=== PATIENT | female | born 1985 | race Caucasian/White ===

== ENCOUNTER 2023-04-16 05:49 | Inpatient (IN) ==
--- NOTE | 2023-04-14 09:04 | Anesthesiology Consultation ---
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 No known COVID-19 posit saurav contacts or current COVID-19 related symptoms. Travel screen negative. At surgeon discretion if preop Covid testing being done. Seen by Medicine 03/20/23= growth restrictionpatient to remain on baby aspirin. Discussed associated increased risk. The need for close surveillance. Discussed risk of preeclampsia. Patient declines genetic testing. Recommend ongoing growth scans. Repeat Dopplers weekly. If Dopplers remain normal plan for delivery at 38 to 39 weeks. If SD ratio is elevated above 95 percentile, delivery at 37 weeks. If absent or reversed end- diastolic flowproceed with delivery at this time. 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 Fetus is currently breechpatient aware that she will require primary if fetus remains breech. Known maternal absence of unilateral kidney, previous baseline testing of renal function was normal. History of vaginal septum that has been resected. Would be okay for vaginal delivery fetus is cephalic depending on obstetric situation. History Surgery Operation Date: 04/16/23 09:10 Proposed Procedures p Section (Delivery of the Baby Through Abdominal Incision) - Miley Tirado MD, FACOG Height/Weight Height: 5 ft 3 in Weight: 73.028 kg Allergies Allergy/AdvReac Type Severity Reaction Status Date / Time cephalexin [From Keflex] Allergy Intermediate rash and Verified 04/14/23 08:08 hives Medications Home Medications Medication Instructions Recorded Confirmed Last Taken vitamin#30 30 mg iron-10 1 cap PO QDL 02/26/22 04/14/23 06/28/22 mg iron-folic acid 1 mg-omg3 capsule Lactobacillus acidophilus 10 10,000 mmu cells PO DAILY 06/28/22 04/14/23 06/28/22 billion cell capsule (Probiotic) fluticasone propionate 50 2 spray intranasal DAILY PRN 06/28/22 04/14/23 Unknown mcg/actuation nasal Congestion spray,suspension aspirin 81 mg capsule 81 mg PO QDL 11/05/22 04/14/23 Unknown Past Medical History Medical History History of chicken pox as child Nausea and vomiting after administration of anesthetic agent after ACL repair but it was after pt got home 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
--- NOTE | 2023-04-15 13:53 | History & Physical Report ---
Date of Service April 15, 2023 Assessment & Plan (1) Supervision of elderly primigravida: (2) IUGR (intrauterine growth restriction) affecting care of mother: (3) Uterus didelphus in : Plan Patient to be admitted for planned c/s at 38wks due to above diagnoses. Aware of risks, alt and complications and consent signed. Labs am of procedure. Questions answered to patient's apparent satisfaction. History of Present Illness Chief Complaint: planned c/s Primary Care Provider: Ant Carvalho, 37yo at 38 wks pippa presents to L&D on day of admission for planned c/s due to breech presentation and IUGR. She is doing well. No rom, vb. +FM. No ctx. PNC c/b 1. uterine anomaly 2. iugr 3. ama 4. breech presentation PNL rh pos, ri, gbs neg OBH: sab x 1 GYNH: nl paps no stds Allergies Allergy/AdvReac Type Severity Reaction Status Date / Time cephalexin [From Keflex] Allergy Intermediate rash and Verified 04/15/23 10:04 hives Home Medications Medication Instructions Recorded Confirmed Type vitamin#30 30 mg iron-10 1 cap PO QDL 02/26/22 04/15/23 History mg iron-folic acid 1 mg-omg3 capsule Lactobacillus acidophilus 10 10,000 mmu cells PO DAILY 06/28/22 04/15/23 History billion cell capsule (Probiotic) fluticasone propionate 50 2 spray intranasal DAILY PRN 06/28/22 04/15/23 History mcg/actuation nasal Congestion spray,suspension aspirin 81 mg capsule 81 mg PO QDL 11/05/22 04/15/23 History Patient History Medical History History of chicken pox as child Nausea and vomiting after administration of anesthetic agent after ACL repair but it was after pt got home 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 Surgical History History of colposcopy with cervical biopsy benign History of vaginal surgery septoplasty 1996 S/P ACL repair right [place] teeth extracted Family History Mother Breast cancer Father Fibrosis, idiopathic pulmonary Denies family history of Ovarian cancer Colorectal cancer Social History Smoking Status: Never smoker Second Hand Exposure: No; Do You Dip or Chew Tobacco: No; Hx Alcohol Use: No Hx Substance Use: No Preferred Language: Malian Communication Ability: Effective Visual Impairment: Limited Hearing Ability: Normal 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 Beliefs That Will Affect Care: None marital status: marital status details: James Schmitz (40) [phone] Current Living Situation: Spouse Current Living Situation Comment: lives with spouse, dog current occupational status: employed current occupation: [employer] Feels Safe at Home: Yes Childhood Exposure to Second-Hand Smoke: No Diet: regular caffeine: Yes Dental Care, Regularly: Yes Physical Activity Frequency: 3-4 Times per Week Seatbelt Use: always Sunscreen Use: Yes Do you think of yourself as: straight/heterosexual Gender Identity: Female Assistive Devices: Contacts and Glasses Review of Systems as per Subjective / HPI Physical Exam Constitutional: WD/WN, vitals as above Respiratory: normal respiratory effort, lungs clear to auscultation Cardiovascular: Rate/Rhythm: regular rate and regular rhythm Gastrointestinal (Abdomen): Percussion/Palpation: abdomen soft; abdomen nontender (gravid, nst reactive) Neurologic: grossly normal Psychiatric: A+Ox3, euthymic affect Coding Level of Care Code None Diagnoses Supervision of elderly primigravida O09.519 IUGR (intrauterine growth restriction) affecting care of mother O36.5973 Uterus didelphus in O34.599; Q51.28
[2023-04-16] MEDS ORDERED: 300mg Preop IV SCH (06:00)
[2023-04-16] MEDS ORDERED: 600mg Preop IV SCH (06:00)
[2023-04-16] MEDS ORDERED: LACTATED RINGER'S 1,000 ML IV PRN (06:26)
[2023-04-16] MEDS ORDERED: fentaNYL citrate PF 100 MCG/2 ML VIAL ONE (06:44)
[2023-04-16] MEDS ORDERED: MoRPHine SULFATE PF 1 MG/ML 10 ML AMP/VIAL ONE (06:44)
[2023-04-16 06:52] LABS: Basophils # (auto) 0.07 K/uL (0-0.2); Basophils % (auto) 0.5 %; Eosinophils % (auto) 1.5 %; Hematocrit (blood only) 38.4 % (37.0-47.0); Hemoglobin 13.6 g/dl (12.0-16.0); Immature Granulocytes # (auto) 0.08 K/uL (0.01-0.20); Immature Granulocytes % (auto) 0.6 %; Lymphocytes # (auto) 2.72 K/uL (1.2-3.4); Lymphocytes % (auto) 20.7 %; Mean Corpuscular Hemoglobin 32.4 pg (25.0-34.0); Mean Corpuscular Hgb Conc 35.4 g/dL (32.0-36.0); Mean Corpuscular Volume 91.4 fL (80.0-100.0); Mean Platelet Volume 11.3 fL (9.4-12.4); Monocytes # (auto) 0.93 K/uL (0.11-0.59); Monocytes % (auto) 7.1 %; Neutrophils # (auto) 9.16 K/uL (1.40-6.50); Neutrophils % (auto) 69.6 %; Platelet Count 180 K/uL (130-400); RDW Coefficient of Variation 13.5 % (11.5-14.5); White Blood Count 13.16 K/ul (4.8-10.8)
[2023-04-16] MEDS ORDERED: CITRIC ACID/SODIUM CITRATE 15 ML UDC ONE (07:12)
[2023-04-16] MEDS ORDERED: GENTAMICIN CONSULT ACTIVE PRN (07:26)
--- NOTE | 2023-04-16 07:29 | History & Physical Bridge Note ---
Date of Service April 16, 2023 History & Physical Bridge Note I have examined the patient, reviewed the History & Physical and in the interval since the performance of the History & Physical I have noted the following changes of clinical significance: no changes noted
[2023-04-16] MEDS ORDERED: OXYTOCIN 10 UNITS/ML VIAL ONE (07:56)
[2023-04-16] MEDS ORDERED: GENTAMICIN SULFATE 380 MG in DEXTROSE 5% 100 ML IV ONE (08:00)
--- NOTE | 2023-04-16 08:53 | Post Operative Brief Note ---
PG Immediate Post Op with CF Date of Surgery April 16, 2023 Pre & Post Diagnosis Operation Date: 04/16/23 07:30 Pre-Op Diagnosis: 1. 38 week IUP 2. IUGR 3. Breech presentation 4. AMA 5. Uterine anomaly Post-Op Diagnosis: Same I identified the patient and participated in the time-out.: Yes Procedure Operation Date: 04/16/23 07:30 Actual Procedures p Primary Low Transverse Section - Miley Tirado MD, FACOG Surgeon Miley Tirado MD, FACOG Motion Picture Camera Lens Technician [place] Estimated Blood Loss 600 Findings Consistent with Post-Op Diagnosis (viable female, apgars pending. uterus with dominant right uterus, left uterus developed but smaller. no communication between cavities. normal ovaries bilaterally. ) Fluids 700cc Specimens Specimen Description: Placenta: Hold Cord Blood Obtained Drains Brasher Catheter Anesthesia Type Spinal Complications none Disposition Accompanied Patient To Recovery: No Disposition: L&D
[2023-04-16] MEDS ORDERED: MoRPHine SULFATE PF 1 MG/ML 10 ML AMP/VIAL INT SPINAL ONE (09:00)
[2023-04-16] MEDS ORDERED: ePHEDrine sulfate 50 MG/ML AMP IV PRN (09:00)
[2023-04-16] MEDS ORDERED: ONDANSETRON INJ 2 MG/ML 2 ML VIAL IV PRN (09:00)
[2023-04-16] MEDS ORDERED: LACTATED RINGER'S 500 ML IV PRN (09:00)
[2023-04-16] MEDS ORDERED: NALBUPHINE HCL INJ 10 MG/ML AMP IV PRN (09:00)
[2023-04-16] MEDS ORDERED: NALOXONE HCL 0.08 MG in SYRINGE 1.8 ML IV PRN (09:00)
[2023-04-16] MEDS ORDERED: diphenhydrAMINE 50 MG/ML VIAL IV PRN (09:00)
[2023-04-16] MEDS ORDERED: NALOXONE HCL 0.4 MG/1 ML VIAL/CARP IV PRN (09:00)
[2023-04-16] MEDS ORDERED: NO NARCOTICS OR SEDATIVES SCH (09:00)
[2023-04-16] MEDS ORDERED: DC INTRASPINAL MORPHINE SCH (09:00)
[2023-04-16] MEDS ORDERED: HYDROmorphone INJ 0.5 MG/0.5 ML SYR IV PRN (09:00)
[2023-04-16] MEDS ORDERED: SODIUM CHLORIDE 0.9% 1000ML 1,000 ML IV SCH (09:00)
[2023-04-16] MEDS ORDERED: NALOXONE HCL 1 MG in SODIUM CHLORIDE 0.9% 1000ML 1,000 ML IV PRN (09:00)
[2023-04-16] MEDS ORDERED: HYDROCORTISONE ACETATE 25 MG SUPP PR PRN (10:48)
[2023-04-16] MEDS ORDERED: LACTATED RINGER'S 1,000 ML IV SCH (10:48)
[2023-04-16] MEDS ORDERED: FLUTICASONE PROPIONATE NA SPR 16 GM BTL PRN (10:48)
[2023-04-16] MEDS ORDERED: MAGNESIUM HYDROXIDE SUSP 30 ML UDC PO PRN (10:48)
[2023-04-16] MEDS ORDERED: SENNA 8.6 MG TAB PO PRN (10:48)
[2023-04-16] MEDS ORDERED: DIPHTHERIA/TETANUS/PERTUSSIS Vaccine (Tdap, Age 7+yrs) 0.5mL SYR/VL IM ONE (10:48)
[2023-04-16] MEDS ORDERED: BENZOCAINE 20% SPRY 85 APPLN/85 GM CAN EXT PRN (10:48)
[2023-04-16] MEDS: KETOROLAC 30 MG/ML VIAL IV PRN ×2 (11:00→18:00)
[2023-04-16] MEDS: OXYTOCIN 20 UNITS in LACTATED RINGER'S 1,000 ML IV SCH ×2 (11:05→19:28)
--- NOTE | 2023-04-16 11:06 | Operative Report ---
PG Post Operative Report Pre & Post Diagnosis Operation Date: 04/16/23 07:30 Pre-Op Diagnosis: 1. 38 week IUP 2. IUGR 3. Breech presentation 4. AMA 5. Uterine anomaly Post-Op Diagnosis: Same I identified the patient and participated in the time-out.: Yes Procedure Operation Date: 04/16/23 07:30 Actual Procedures pPrimary Low Transverse Section for the of a live girl infant at 0805(Bilateral) - Miley Tirado MD, FACOG Surgeon Miley Tirado MD, FACOG Surface Ship Usw Supervisor [place] Estimated Blood Loss 600 Findings Consistent with Post-Op Diagnosis (viable female, apgars 9,9. uterus with domin ant right uterus, left uterus developed but smaller. no communication between cavities. normal ovaries and tubes bilaterally. ) Fluids 700 Specimens cord blood Drains curtis Anesthesia Type Spinal Complications none Disposition Accompanied Patient To Recovery: No Disposition: L&D Indications 37yo at 38wks with iugr and breech presentation for planned c/s in background of uterine anomaly. Description of Procedure The patient was taken to the operating room and identified. After adequate anesthesia was obtained, she was placed in the supine position with a leftward tilt on the operating table and prepped and draped in the usual sterile fashion. A curtis catheter had already been placed. The knife was used to create a Pfannenstiel skin incision that was carried down to the underlying layer of fascia. The fascia was nicked in the midline and this opening was extended laterally using Pierce scissors. Dominique clamps were placed on the superior and inferior aspect of the fascial incision tenting it upward and the underlying rectus muscles were dissected off the overlying fascia both sharply and bluntly using Pierce scissors. The rectus muscles were bluntly in the midline. The peritoneal cavity was bluntly entered into. This opening was stretched. The bladder blade was placed. The vesicouterine peritoneum was elevated and opened up into and the bladder flap was created digitally and bladder blade was replaced. The knife was used to create a hysterotomy and this opening was stretched. The operators hand was placed through the hysterotomy and the bladder blade was removed. The buttocks was elevated and with fundal pressure the fetus was delivered to the level of the shoulders, the arms were swept across the anterior midline and the head was flexed and delivered. The cord was clamped and cut and the 's mouth and nares were bulb suction. The infant was handed off to the awaiting pediatricians. Cord blood was obtained. The placenta was manually expressed. The uterus was exteriorized and cleared of all clots and debris. Dilute IV Pitocin was begun. The uterine tone was improving. The hysterotomy was closed in a running interlocking fashion using 0 Vicryl followed by a second imbricating layer of 0 Vicryl. The hysterotomy was hemostatic. The pelvis was suctioned for any fluid. The uterus was returned to the abdomen. The gutters were cleared of all clots and debris. The hysterotomy was reinspected and not to be hemostatic and so additional figure of eight sutures of 3-0 and 0 vicryl were placed for excellent hemostasis. Adriel applied at suture line. The fascia was then closed in running fashion using 0 Vicryl. The subcutaneous fat was copiously irrigated and reapproximated using 2-0 chromic. The skin was closed in a subcuticular fashion using 4-0 monocryl. At this point the procedure was terminated. The patient was transferred to the recovery room in stable condition. All sponge, lap and needle counts are correct x2. I attest to the content of the Intraoperative Record and any orders documented therein. Any exceptions are noted below. OB Procedure Charges 40644
--- NOTE | 2023-04-16 11:19 | Obstetrical Progress Note ---
Date of Service April 16, 2023 Assessment & Plan (1) Low blood pressure: (2) Status post delivery: Plan pt with low bp, does not seem likely from ongoing surgical losses, tone of uterus is good, ff, abdomen itself is soft, nd. will check hgb and watch vs, and urine output. pt aware. Admission and Anticipated Discharge Date Admission Date: April 16, 2023 Subjective notified by nursing that pt bp low. anesthesia gave her bolus. hgb ordered by me but not back yet and per nurse not even drawn pt sitting in bed, baby has nursed, says feels lightheaded. no increased pain, notes soreness but no worsening. admits to history of low bp Review of Systems Constitutional: as per Subjective / HPI Physical Exam Constitutional: WD/WN, vitals as above pulse normal urine output about 200cc since or Gastrointestinal (Abdomen): dressing c/d/i, abdomen soft, ff 3 down mild appropriate tenderness. perineum, no evid of active bleeding. Results & Data Vital Signs (Past 12 Hours) Vital Signs Temp Pulse Resp BP Pulse Ox 04/16/23 11:09 69 99 04/16/23 11:10 75 89/56 L 04/16/23 11:04 74 99 04/16/23 10:59 68 99 04/16/23 11:00 72 88/52 L 04/16/23 10:54 73 99 04/16/23 10:49 71 98 04/16/23 10:50 76 89/50 L 04/16/23 10:44 74 98 04/16/23 10:39 69 98 04/16/23 10:40 69 87/52 L 04/16/23 10:35 70 87/54 L 04/16/23 10:34 72 98 04/16/23 10:29 64 98 04/16/23 10:30 65 85/50 L 04/16/23 10:25 71 81/53 L 04/16/23 10:24 76 98 04/16/23 10:19 75 98 04/16/23 10:20 69 80/53 L 04/16/23 10:14 70 97 04/16/23 10:09 67 98 04/16/23 10:10 66 78/52 L 04/16/23 10:04 66 98 04/16/23 09:59 70 98 04/16/23 10:00 71 76/52 L 04/16/23 09:54 72 98 04/16/23 09:49 73 97 04/16/23 09:50 80 72/51 L 04/16/23 09:44 76 98 04/16/23 09:39 70 97 04/16/23 09:40 69 77/48 L 04/16/23 09:34 73 98 04/16/23 09:31 77 71/35 L 04/16/23 09:30 60 59/31 L 04/16/23 09:29 61 97 04/16/23 09:24 56 L 97 04/16/23 09:20 84 70/51 L 04/16/23 09:19 85 97 04/16/23 09:14 81 97 04/16/23 09:09 79 97 04/16/23 09:10 79 95/50 L 04/16/23 09:08 82 90/49 L 04/16/23 09:04 81 96 04/16/23 09:03 82 83/51 L 04/16/23 09:00 85 86/49 L 04/16/23 09:01 92 H 76/49 L 04/16/23 08:59 95 H 96 04/16/23 07:04 85 120/79 04/16/23 06:28 84 115/75 04/16/23 05:54 97.9 F 18 PG Care Time/CCT Total # of Minutes Spent Total Time Spent with Patient: Total time spent is greater than 50% in coordination of care (as documented) at patient's floor/unit and/or counseling patient: Coding Level of Care Code None Diagnoses Low blood pressure I95.9 Status post delivery Z98.891
[2023-04-16 11:45] LABS: Hematocrit (blood only) 32.8 % (37.0-47.0); Hemoglobin 11.6 g/dl (12.0-16.0)
--- NOTE | 2023-04-16 12:19 | Anesthesiology Progress Note ---
Date of Service April 16, 2023 Anesthesia Post Procedure Vital Signs Vital Signs: Temp Pulse Resp BP Pulse Ox O2 Del Method 04/16/23 11:21 36.6 C 16 98 Room Air 04/16/23 12:14 84 99 04/16/23 12:11 81 123/54 L 04/16/23 12:09 83 98 04/16/23 12:04 83 98 04/16/23 11:59 84 98 04/16/23 12:00 82 98/53 L 04/16/23 11:54 78 98 04/16/23 11:53 79 99/56 L 04/16/23 11:49 82 99 04/16/23 11:44 88 97 04/16/23 11:39 73 99 04/16/23 11:40 73 90/51 L 04/16/23 11:34 73 99 04/16/23 11:30 72 88/51 L 04/16/23 11:29 75 98 04/16/23 11:24 74 99 04/16/23 11:19 70 97 04/16/23 11:20 77 90/55 L 04/16/23 11:14 70 98 04/16/23 11:09 69 99 04/16/23 11:10 75 89/56 L 04/16/23 11:04 74 99 04/16/23 10:59 68 99 04/16/23 11:00 72 88/52 L 04/16/23 10:54 73 99 04/16/23 10:49 71 98 04/16/23 10:50 76 89/50 L 04/16/23 10:44 74 98 04/16/23 10:39 69 98 04/16/23 10:40 69 87/52 L 04/16/23 10:35 70 87/54 L 04/16/23 10:34 72 98 04/16/23 10:29 64 98 04/16/23 10:30 65 85/50 L 04/16/23 10:25 71 81/53 L 04/16/23 10:24 76 98 04/16/23 10:19 75 98 04/16/23 10:20 69 80/53 L 04/16/23 10:14 70 97 04/16/23 10:09 67 98 04/16/23 10:10 66 78/52 L 04/16/23 10:04 66 98 04/16/23 09:59 70 98 04/16/23 10:00 71 76/52 L 04/16/23 09:54 72 98 04/16/23 09:49 73 97 04/16/23 09:50 80 72/51 L 04/16/23 09:44 76 98 04/16/23 09:39 70 97 04/16/23 09:40 69 77/48 L 04/16/23 09:34 73 98 04/16/23 09:31 77 71/35 L 04/16/23 09:30 60 59/31 L 04/16/23 09:29 61 97 04/16/23 09:24 56 L 97 04/16/23 09:20 84 70/51 L 04/16/23 09:19 85 97 04/16/23 09:14 81 97 04/16/23 09:09 79 97 04/16/23 09:10 79 95/50 L 04/16/23 09:08 82 90/49 L 04/16/23 09:04 81 96 04/16/23 09:03 82 83/51 L 04/16/23 09:00 85 86/49 L 04/16/23 09:01 92 H 76/49 L 04/16/23 08:59 95 H 96 04/16/23 07:04 85 120/79 04/16/23 06:28 84 115/75 04/16/23 05:54 36.6 C 18 Pain Intensity Bilateral Lower Abdomen: Pain Intensity: 3 Transfer of Care Handoff Completed per policy Notes Mental Status: alert / awake / arousable Patient Amnestic to Procedure: Yes Nausea / Vomiting: adequately controlled Pain: adequately controlled Airway Patency, RR, SpO2: stable & adequate BP & HR: stable & adequate Hydration State: stable & adequate Neuraxial Anesthesia: sensory block is resolving Anesthetic Complications: no major complications apparent and Pt Satisfied with anesthetic care Notes: hypotensice post procedure resolved with IVF bolus. hg acceptable.
[2023-04-16] MEDS: SIMETHICONE 80 MG CHEW PO SCH ×3 (13:41→20:58)
[2023-04-16] MEDS: DOCUSATE SODIUM 100 MG CAP PO SCH (20:58)
[2023-04-17] MEDS: KETOROLAC 30 MG/ML VIAL IV PRN (01:45)
[2023-04-17] MEDS ORDERED: ONDANSETRON INJ 2 MG/ML 2 ML VIAL IV PRN (03:01)
[2023-04-17] MEDS ORDERED: diphenhydrAMINE 50 MG/ML VIAL IV PRN (03:01)
[2023-04-17] MEDS ORDERED: KETOROLAC 30 MG/ML VIAL IV PRN (03:01)
[2023-04-17] MEDS ORDERED: PROMETHAZINE HCL 25 MG in SODIUM CHLORIDE 0.9% 50 ML IV PRN (03:01)
[2023-04-17] MEDS ORDERED: ZOLPIDEM TARTRATE 5 MG TAB PO PRN (03:01)
[2023-04-17] MEDS ORDERED: diphenhydrAMINE Capsule 25 MG CAP PO PRN (03:01)
[2023-04-17] MEDS ORDERED: CLINDAMYCIN/D5W 900 MG/50 ML BAG IV SCH (06:00)
[2023-04-17 06:24] LABS: Basophils # (auto) 0.05 K/uL (0-0.2); Basophils % (auto) 0.3 %; Eosinophils # (auto) 0.14 K/uL (0-0.50); Eosinophils % (auto) 0.9 %; Hematocrit (blood only) 31.6 % (37.0-47.0); Hemoglobin 10.9 g/dl (12.0-16.0); Immature Granulocytes # (auto) 0.09 K/uL (0.01-0.20); Immature Granulocytes % (auto) 0.6 %; Lymphocytes # (auto) 1.78 K/uL (1.2-3.4); Lymphocytes % (auto) 11.1 %; Mean Corpuscular Hemoglobin 32.2 pg (25.0-34.0); Mean Corpuscular Hgb Conc 34.5 g/dL (32.0-36.0); Mean Corpuscular Volume 93.2 fL (80.0-100.0); Mean Platelet Volume 11.7 fL (9.4-12.4); Monocytes # (auto) 1.04 K/uL (0.11-0.59); Monocytes % (auto) 6.5 %; Neutrophils # (auto) 12.89 K/uL (1.40-6.50); Neutrophils % (auto) 80.6 %; Platelet Count 149 K/uL (130-400); RDW Coefficient of Variation 13.8 % (11.5-14.5); RDW Standard Deviation 46.7 fL (36.4-46.3); Red Blood Count 3.39 M/uL (4.20-5.40); White Blood Count 15.99 K/ul (4.8-10.8)
--- NOTE | 2023-04-17 07:19 | Obstetrical Progress Note ---
Date of Service April 17, 2023 Assessment & Plan (1) Status post delivery: Plan stable. doing well. routine care. hgb pending this am. Day #:: 1 Subjective Ambulation: ambulating normally Voiding: no voiding problems Passing Gas:: Yes Diet Tolerance:: regular diet Lochia:: Small Feeding Type:: breast feeding no pain concerns Constitutional: + as per Subjective / HPI Physical Exam Constitutional WD/WN, vitals as above Respiratory normal respiratory effort, lungs clear to auscultation Cardiovascular Rate/Rhythm: regular rate and regular rhythm Gastrointestinal (Abdomen) Inspection/Auscultation: abdomen normal to inspection, normal bowel sounds and + abdominal surgical incision (c/d/i ) Percussion/Palpation: abdomen soft Fundus firm 2cm down Musculoskeletal nt calves no edema Neurologic grossly normal Psychiatric A+Ox3, euthymic affect Results & Data Vital Signs (Past 12 Hours) Vital Signs Temp Pulse Resp BP Pulse Ox O2 Del Method 04/17/23 03:00 20 96 04/17/23 02:00 18 96 04/17/23 03:42 98.6 F 96 H 20 95/57 L 97 Room Air 04/17/23 01:00 20 94 04/17/23 00:00 18 96 04/16/23 23:00 18 97 04/16/23 22:00 18 97 04/16/23 23:14 98.8 F 93 H 18 98/60 L 97 Room Air 04/16/23 21:00 20 96 04/16/23 20:00 18 96
[2023-04-17] MEDS: PRENATAL VITAMIN 1 TAB PO SCH (08:25)
[2023-04-17] MEDS: SIMETHICONE 80 MG CHEW PO SCH ×4 (08:25→21:31)
[2023-04-17] MEDS: oxyCODONE/ACETAMINOPHEN 5mg/325mg TAB PO PRN ×4 (08:25→21:31)
[2023-04-17] MEDS: DOCUSATE SODIUM 100 MG CAP PO SCH ×2 (08:25→21:31)
[2023-04-17] MEDS: IBUPROFEN 600 MG TAB PO PRN ×4 (08:25→21:32)
[2023-04-17] MEDS: FERROUS SULFATE 325 MG TAB PO SCH (08:25)
[2023-04-18] MEDS: IBUPROFEN 600 MG TAB PO PRN ×4 (01:22→21:35)
[2023-04-18] MEDS: oxyCODONE/ACETAMINOPHEN 5mg/325mg TAB PO PRN ×4 (01:22→21:36)
[2023-04-18 06:41] LABS: Hematocrit (blood only) 31.7 % (37.0-47.0); Hemoglobin 10.7 g/dl (12.0-16.0)
--- NOTE | 2023-04-18 07:03 | Obstetrical Progress Note ---
Date of Service April 18, 2023 Assessment & Plan (1) Status post delivery: Patient is post op day #2 from she reports no extremity pain her bleeding is minimal she has no depression she wishes to stay 1 more day as she is still working on breast-feeding this sounds reasonable Her physical exam reveals a clean dry and intact incision extremity exam is negative we will plan discharge tomorrow Subjective Constitutional: + as per Subjective / HPI Physical Exam Constitutional WD/WN, vitals as above well developed and well nourished Respiratory normal respiratory effort, lungs clear to auscultation normal respiratory effort Cardiovascular RRR, no murmur, no edema Gastrointestinal (Abdomen) normal bowel sounds, soft, nontender, no hepatosplenomegaly Results & Data Vital Signs (Past 12 Hours) Vital Signs Temp Pulse Resp BP Pulse Ox O2 Del Method 04/17/23 23:50 98.1 F 97 H 20 120/74 97 Room Air 04/17/23 20:05 98.1 F 88 20 117/74 96 Room Air
[2023-04-18] MEDS: FERROUS SULFATE 325 MG TAB PO SCH (07:49)
[2023-04-18] MEDS: SIMETHICONE 80 MG CHEW PO SCH ×4 (07:49→19:54)
[2023-04-18] MEDS: PRENATAL VITAMIN 1 TAB PO SCH (07:49)
[2023-04-18] MEDS: DOCUSATE SODIUM 100 MG CAP PO SCH ×2 (07:49→19:54)
[2023-04-18] MEDS ORDERED: bisacodyL 10 MG SUPP PR PRN (10:16)
[2023-04-19] MEDS: IBUPROFEN 600 MG TAB PO PRN ×2 (07:23→11:51)
[2023-04-19] MEDS: PRENATAL VITAMIN 1 TAB PO SCH (07:23)
[2023-04-19] MEDS: FERROUS SULFATE 325 MG TAB PO SCH (07:23)
[2023-04-19] MEDS: DOCUSATE SODIUM 100 MG CAP PO SCH (07:23)
[2023-04-19] MEDS: oxyCODONE/ACETAMINOPHEN 5mg/325mg TAB PO PRN ×2 (07:24→11:51)
[2023-04-19] MEDS: SIMETHICONE 80 MG CHEW PO SCH ×2 (07:24→11:51)
--- NOTE | 2023-04-19 07:51 | Obstetrical Progress Note ---
Date of Service <Adan Mullen MD - Last Filed: 04/19/23 09:04> April 19, 2023 Assessment & Plan <Adan Mullen MD - Last Filed: 04/19/23 09:04> (1) Status post delivery: Plan Vital Signs reviewed and WNL. (Tmax at 36.7) Hemoglobin Reviewed. 10.9 (04/17/23) 10.7 (04/18/23). Blood Type: O+, GBS-, Rubella Immune. Pt is doing well clinically. Encourage Ambulation, Monitor and Control pain with Motrin PRN, Resume regular diet, Monitor Lochia Encourage Breast Feeding. Pt counselled on discharge instructions. <Wild Jaeger MD - Last Filed: 04/21/23 08:26> (1) Status post delivery: Subjective <Adan Mullen MD - Last Filed: 04/19/23 09:04> Ambulation: ambulating normally Voiding: no voiding problems and no incontinence (hasn't had sufficient food to result in BM) Passing Gas:: Yes Diet Tolerance:: regular diet Lochia:: Small (light blood, a pad to absorb it) Feeding Type:: breast feeding (supplementing with formula) Current Pain Level(1-10): 2 (probably a 2 before meds) Review of Systems All systems reviewed & are unremarkable except as noted in HPI & below Eyes: no diplopia or no worsening vision Respiratory: no cough or no dyspnea Cardiovascular: no chest pain or no palpitations Gastrointestinal: + abdominal pain (only around the incision site) Musculoskeletal: + myalgia (some pain in right upper arm, felt it was similar to swollen gland pain); no joint pain or no body aches Physical Exam <Adan Mullen MD - Last Filed: 04/19/23 09:04> Respiratory normal respiratory effort, lungs clear to auscultation Cardiovascular RRR, no murmur, no edema Gastrointestinal (Abdomen) Some residual pain on right side of incision. Musculoskeletal Extremities: extremities normal to inspection (no calf pain or tenderness) Results & Data <Adan Mullen MD - Last Filed: 04/19/23 09:04> Vital Signs (Past 12 Hours) Vital Signs Temp Pulse Resp BP BP Pulse Ox O2 Del Method 04/19/23 07:00 36.5 C 85 16 117/78 97 Room Air 04/18/23 23:01 37.1 C 92 H 18 128/79 97 Room Air 04/18/23 20:00 36.8 C 85 18 100/67 <Wild Jaeger MD - Last Filed: 04/21/23 08:26> Co-Signing Physician Notes Patient seen with resident and agree with the above findings and plan. Stable for discharge
--- NOTE | 2023-04-22 13:23 | Discharge Summary ---
Date of Service Date of admission: April 16, 2023 Date of discharge: April 19, 2023 Admission HPI Per Admitting Provider 37yo at 38 wks pippa presents to L&D on day of admission for planned c/s due to breech presentation and IUGR. She is doing well. No rom, vb. +FM. No ctx. PNC c/b 1. uterine anomaly 2. iugr 3. ama 4. breech presentation PNL rh pos, ri, gbs neg OBH: sab x 1 GYNH: nl paps no stds Discharge Data Consultations 04/16/23 06:11 Consult Anesthesiology Stat Procedures Performed Operation Date: 04/16/23 07:30 Actual Procedures p Primary Low Transverse Section for the of a live girl at 0805(Bilateral) - Miley Tirado MD, [facility] Course (1) Uterus didelphus: Plan The patient underwent the above stated procedure without incident and her postoperative course and recovery was uncomplicated. On her postoperative day #3 she was tolerating a regular diet, voiding spontaneously, ambulating without problem and was using oral meds for adequate pain control. Her postoperative hemoglobin was 10.7. She was given written and verbal discharge instructions and told to followup in office at 6wks. She was given appropriate pain medicine prescriptions. Coding Level of Care Code None Diagnoses Uterus didelphus Q51.28
== END 2023-04-19 13:45 | disposition home or self-care (01) | DRG 787 ==
LOC: 4S1 05:49 → EDSTATUS 07:30 → 4E2 12:00